=== PATIENT | male | born 1955 | race Caucasian/White ===

== ENCOUNTER → 2018-03-12 16:30 | Outpatient (CLI) | payer BC, SELFPAY ==
[2018-03-12 16:35] LABS: Basophils # 0.1 K/mm3 (0-0.2); Basophils % 0.6 % (0.1-2.0); Eosinophils # 0.3 K/mm3 (0.0-0.4); Eosinophils % 2.9 % (0.1-12.0); Hematocrit 42.8 % (42.0-52.0); Hemoglobin 14.1 g/dL (14.1-18.0); Lymphocytes # 2.2 K/mm3 (0.7-4.5); Lymphocytes % 26.1 K/mm3 (10-50); Mean Corpuscular Hemoglobin 28.5 pg (27.0-31.2); Mean Corpuscular Volume 86.4 fl (80-94); Mean Platelet Volume 7.5 fl (7.4-10.4); Monocytes # 0.6 K/mm3 (0.1-1.0); Monocytes % 7.4 % (1.7-9.3); Neutrophils # 5.4 K/mm3 (1.8-7.8); Neutrophils % 62.9 % (37.0-80.0); Platelet Count 203 K/mm3 (142-424); Red Blood Count 4.95 M/mm3 (4.60-6.20); Red Cell Distribution Width 13.9 % (11.5-17.5); White Blood Count 8.5 K/mm3 (4.8-10.8)
--- NOTE | 2018-03-12 16:52 | CT_ITS ---
CT head/brain wo con HISTORY: ITS.REASON: HEADACHES, WEAKNESS, ATAXIA,BLURRED VISION ORDERING PHYSICIAN: Home Sawant PATIENT AGE: 62 years COMPARISON: None TECHNIQUE: Axial images obtained without contrast. Brain and bone windows reviewed. All CT scans at the facility use one or more dose reduction, viz: automated exposure control; ma/kV adjustment per patient size (including targeted exams where dose is matched to indication; i.e. head); or iterative reconstruction technique. FINDINGS: No midline shift, mass effect, intracranial hemorrhage, hydrocephalus, or extra-axial fluid collection is evident. There is a small area of decreased attenuation in the left subinsular region measuring 6 mm and may be due to small chronic lacunar infarction. Mild periventricular ischemic gliotic changes are noted. The calvarium has an unremarkable appearance. No mastoid effusion. No sinus air-fluid levels.. IMPRESSION: 1. No acute intracranial findings. 2. Suspect old small lacunar infarction of the left subinsular region with mild periventricular ischemic gliotic change
[2018-03-12 17:12] LABS: Anion Gap 12.3 mEq/L (5-15); Blood Urea Nitrogen 31 mg/dL (7-18); Calcium 9.4 mg/dL (8.5-10.1); Carbon Dioxide 28 mmol/L (21.0-32.0); Chloride 98 mmol/L (98-107); Creatinine,Serum 1.83 mg/dL (0.70-1.30); Estimated Glomerular Filt Rate 38 ml/min (>60); GFR (African American) 45 ML/MIN (>60); Glucose 146 mg/dL (74-106); Potassium 4.3 mmoL/L (3.5-5.1); Sodium 134 mmol/L (136-145)
== END ==
PROVIDERS: PCP Internal Medicine; Visit Provider Internal Medicine
DX: R27.0 Ataxia, unspecified (principal); R51 Headache; R53.1 Weakness; H53.8 Other visual disturbances; R42 Dizziness and giddiness
CPT/HCPCS: 70450; 80048; 85025

== ENCOUNTER → 2018-04-24 13:33 | Outpatient (CLI) | payer BC, SELFPAY ==
--- NOTE | 2018-04-24 13:37 | US_ITS ---
US kidney retroperitoneal comp HISTORY: ITS.REASON: ELEVATED KID FUNCTIONS ORDERING PHYSICIAN: Home Sawant PATIENT AGE: 62 years Comparison: FINDINGS: Comparison made previous CT scan abdomen pelvis from 11/30/2015 RIGHT KIDNEY:Unremarkable. Normal size and echogenicity. The right kidney measures 11.8 x 6.2 x 5.9 cm and shows a good cortical medullary junction with no hydronephrosis or other abnormality. LEFT KIDNEY:Unremarkable. No hydronephrosis. Normal size and echogenicity the left kidney measures 10.4 x 5.9 x 5.9 cm and shows a good cortical measure junction. There is normal vascularity to both kidneys.. OTHER FINDINGS the spleen appears normal. IMPRESSION: Both kidneys appear sonographically normal
== END ==
PROVIDERS: Family Provider Internal Medicine; PCP Internal Medicine; Visit Provider Internal Medicine
DX: R94.4 Abnormal results of kidney function studies (principal)
CPT/HCPCS: 76770

== ENCOUNTER → 2018-05-07 09:34 | Outpatient (POV) | payer BC, SELFPAY | PROVIDERS: Visit Provider Nurse Practitioner Acute Care | DX: Z00.00 Encounter for general adult medical examination without abnormal findings (principal) ==

== ENCOUNTER → 2018-11-07 10:25 | Outpatient (CLI) | payer BC, SELFPAY ==
--- NOTE | 2018-11-07 12:28 | CT_ITS ---
CT abdomen pelvis wo con CLINICAL INDICATION: Left lower quadrant pain, history of bowel obstruction ITS.REASON: LLQ PAIN ORDERING PHYSICIAN: Home Sawant PATIENT AGE: 63 years COMPARISON: 11/30/2015 TECHNIQUE: Axial images obtained with sagittal and coronal reformats. All CT scans at the facility use one or more dose reduction, viz: automated exposure control, ma/kV adjustment per patient size (including targeted exams where dose is matched to indication, i.e. head), or iterative reconstruction technique. PROCEDURE: Oral Contrast: Gastroview IV Contrast: None . FINDINGS: There is patchy groundglass density in the right lung base medially nonspecific but could be due to a small area of infiltrate. There is a 4 mm noncalcified nodule in this area which is slightly more prominent when compared to 11/30/2015. There are fibrotic changes in the left lung base with a 6 mm noncalcified nodular opacity in the left lower lobe. The liver, gallbladder, spleen, adrenal glands, and pancreas have an unremarkable unenhanced appearance. There is mild stranding of the perinephric renal fat bilaterally is nonspecific. There is a nonobstructing 4 mm stone in the mid polar region of the left kidney. 2.3 cm isodensity is noted in the lower pole the right kidney which may be due to a cyst. Unremarkable appendix. No intestinal obstruction or free air. There is diverticulosis of the descending and sigmoid colon but no evidence of diverticulitis. No acute pelvic findings. Postsurgical changes with prior posterior fusion at L4 and L5. IMPRESSION: 1. No acute abdominal or pelvic findings. No intestinal obstruction 2. Nonobstructing left renal calculus. 3. Patchy groundglass density in the right lower lobe which may be due to small area of infiltrate. 4. 4 mm right lower lobe nodule and 6 mm left lower lobe nodule. Consider 6-12 month follow-up chest CT
== END ==
PROVIDERS: PCP Internal Medicine; Visit Provider Internal Medicine
DX: R10.32 Left lower quadrant pain (principal)
CPT/HCPCS: 74176

== ENCOUNTER 2018-12-19 10:18 | Outpatient (CLI) | payer BC, SELFPAY ==
[2018-12-19 10:26] LABS: Hematocrit 36.6 % (42.0-52.0)
[2018-12-19 10:53] LABS: Anion Gap 14.1 mEq/L (5-15); Blood Urea Nitrogen 27 mg/dL (7-18); Calcium 9.4 mg/dL (8.5-10.1); Carbon Dioxide 27 mmol/L (21.0-32.0); Chloride 99 mmol/L (98-107); Estimated Glomerular Filt Rate 44 ml/min (>60); GFR (African American) 53 ML/MIN (>60); Glucose 195 mg/dL (74-106); Potassium 4.1 mmoL/L (3.5-5.1); Sodium 136 mmol/L (136-145)
[2018-12-19 11:40] VITALS: BP 81/58; PULSE 104; RESP 20; O2SAT 92
[2018-12-19 12:10] VITALS: BP 85/61; PULSE 94; RESP 18
[2018-12-19 12:40] VITALS: BP 100/59; PULSE 93; RESP 18
[2018-12-19 13:10] VITALS: BP 112/67; PULSE 90; RESP 16
[2018-12-19 13:50] VITALS: BP 111/72; PULSE 91; RESP 18
== END 2018-12-19 13:50 | disposition home or self-care (01) ==
LOC: LAB.DROPOF 10:18 → INF 11:25
PROVIDERS: PCP Internal Medicine; Visit Provider Internal Medicine
DX: E11.65 Type 2 diabetes mellitus with hyperglycemia (principal); E86.0 Dehydration; I10 Essential (primary) hypertension; R53.83 Other fatigue; R53.1 Weakness
CPT/HCPCS: 80048; 85014; 96360; 96361

== ENCOUNTER → 2020-03-21 10:45 | Outpatient (CLI) | payer MEDICARE, SELFPAY ==
--- NOTE | 2020-03-21 11:01 | XR_ITS ---
PROCEDURE: XR HIP RT 2-3V W/PELVIS CLINICAL INDICATION: RIGHT POSTERIOR HIP PAIN COMPARISON: No exams were available for comparison FINDINGS: There are mild osteoarthritic changes of the hips. No acute fracture or dislocation. No lytic or blastic change. Postsurgical changes are present in the lumbar spine. There is a small area of concavity along the right femoral neck superiorly at the femoral head and neck junction. 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
== END ==
PROVIDERS: PCP Internal Medicine; Referring Provider Internal Medicine; Visit Provider Internal Medicine
DX: M25.551 Pain in right hip (principal)
CPT/HCPCS: 73502

== ENCOUNTER → 2020-03-30 09:11 | Outpatient (CLI) | payer MEDICARE, BC, SELFPAY ==
--- NOTE | 2020-03-30 09:25 | MR_ITS ---
PROCEDURE: MR LUMBAR SPINE WO/W CON CLINICAL INDICATION: LUMBAGO, RT HIP PAIN COMPARISON: [facility] [place]/WO from 10/21/2014 TECHNIQUE: Standard multiplanar multiecho sequences are performed with 19 cc IV ProHance. 3-D MIP and myelographic images are also rendered and reviewed FINDINGS: The patient is again noted to be status post bilateral transpedicular screw and wandy external fixation, interdisc fusion, and laminectomy at L4-5. There is otherwise uniform fat marrow signal intensity and the disc spaces, spinal cord, and the conus medullaris are unremarkable. At the L1-2 disc space, there is a broad-based disc protrusion, subtle left paracentral focal paracentral disc protrusion and mild facet arthropathy producing mild central canal and mild bilateral neural foraminal stenosis. At the L2-3 disc space there is a stable right lateral disc protrusion as well as a broad-based bulging disc producing stable mild right neural foraminal stenosis. There is also a stable mild left neural foraminal stenosis. At the L3-4 disc space there is a broad-based disc protrusion, hypertrophied ligamentum flavum, and mild facet arthropathy producing mild central canal and mild bilateral neural foraminal stenosis. At the L4-5 disc space there is bilateral external fixation, inter disc fusion, and a laminectomy defect noted as well as facet arthropathy producing mild bilateral neural foraminal stenosis, left greater than right. There is enhancing scar within the laminectomy site. At the L5-S1 disc space there is a stable broad-based disc protrusion with a superimposed focal paracentral disc protrusion which is slightly more pronounced than the last examination.. There is mild facet arthropathy. Mild central canal and mild bilateral neural foraminal stenosis, left greater than right is noted. The paralumbar structures are remarkable for a 2 centimeter right lower pole renal cyst. IMPRESSION: Status post L4-5 external fixation, laminectomy, and inter disc fusion. Mild multilevel spinal stenosis as above. Dictated by: Ronald Brand 03/30/2020 16:35 Electronically signed by Ronald Brand in [place] 03/30/2020 16:35
--- NOTE | 2020-03-30 09:25 | MR_ITS ---
PROCEDURE: MR HIP RT WO/W CON CLINICAL INDICATION: LUMBAGO, RT HIP PAIN Right hip pain, possible acetabular impingement, right leg pain numbness and tingling COMPARISON: 03/21/2020 TECHNIQUE: Routine multiplanar multi echo sequences are performed without and with gadolinium enhancement. FINDINGS: There is no evidence of avascular necrosis. There are mild osteoarthritic changes of the hips with some decrease in the hip joint space. There appears to be a small paralabral cyst of the right labrum superiorly and laterally. There is some irregular increased signal intensity of the anterior labrum on the right suspicious for labral tear. This is difficult to evaluate without intra-articular contrast or a significant joint effusion. 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 There does appear to be a small bump along the right femoral waist with a small subchondral cyst at this area which may be seen with femoral acetabular impingement. There may also be a small bump along the left femoral waist with tiny subchondral cyst. No fracture or dislocation. On the left there are subchondral cystic changes of the acetabulum and a small paralabral cyst suspected laterally and posteriorly. Sagittal images were not performed of the left hip. The SI joints have an unremarkable appearance. No fracture or dislocation. No other significant anomalies. IMPRESSION: There are mild osteoarthritic changes of the hips with bilateral subchondral cystic changes and small bilateral paralabral cysts. There are small bumps with small subchondral cystic changes along the anterior aspect of both femoral waist which may be seen with cam type [place]BER. There is heterogeneous increased signal intensity of the anterior aspect of the right glenoid labrum suggesting a labral tear or prominent degeneration. Dictated by: Aneesh Montero MD 04/05/2020 10:57 Electronically signed by Aneesh Montero MD in [place] 04/05/2020 10:57
[2020-03-30 10:14] LABS: Blood Urea Nitrogen 29 mg/dl (9-20); Estimated Glomerular Filt Rate 61 ml/min (>60); GFR (African American) 74 ML/MIN (>60)
== END ==
PROVIDERS: PCP Internal Medicine; Visit Provider Internal Medicine
DX: M54.41 Lumbago with sciatica, right side (principal); M25.551 Pain in right hip
CPT/HCPCS: 36415; 72158; 73723; 76376; 82565; 84520; A9576

== ENCOUNTER 2020-05-30 18:31 | Emergency (ER) | payer MEDICARE, BC, SELFPAY ==
[2020-05-30] VITALS (7 sets, daily range): BP systolic 118–151; BP diastolic 71–87; PULSE 60–85; RESP 16–18; TEMP 36.7; O2SAT 96–100; BMI 27.1
--- NOTE | 2020-05-30 20:14 | HMH.EDGENADL ---
ED Disposition Clinical Impression: Laceration of forearm, complicated Qualifiers: Encounter type: initial encounter Laterality: right Qualified Code(s): S51.811A - Laceration without foreign body of right forearm, initial encounter Disposition: Home, Self-Care Condition on Discharge: Good Instructions: DI for Laceration Repair, DI for Wound Infection Additional Instructions: You have been evaluated for extensive lacerations to the right forearm. Please keep area clean and dry. You may shower after 24 hours. Follow-up for wound check in the next few days. Follow-up for suture removal in 7 to 10 days. Tylenol and ibuprofen for pain. Take Keflex as prescribed. Return to the emergency department if you have any new or worsening symptoms. Prescriptions: cephALEXin [cephALEXin 500mg capsule*] 500 mg PO Q6H 5 Days #20 cap Transmission Status: Received by [facility] Referrals: Home Sawant [Primary Care Provider] - Time of Disposition: 20:25 - Critical Care Critical Care Time: No Attestation: On 05/30/20, the high probability of a clinically significant, sudden or life threatening deterioration of the following system(s) required my full and direct attention, intervention and personal management. The time I documented below is in addition to time spent performing reported procedures but includes the following listed in this critical care notation. Medical Decision Making - Medical Records Medical records reviewed: Yes: I reviewed the patient's medical records. - Jan Inquiry Pt receiving controlled substance: No Vital Signs: 05/30/20 18:37 05/30/20 18:44 05/30/20 18:49 Temperature 98.1 F Temperature Source Oral Pulse Rate Pulse Rate [Right] 63 61 60 Respiratory Rate 16 18 Blood Pressure Blood Pressure [Right Arm] 118/71 118/71 125/79 Blood Pressure Mean [Right Arm] 86 86 94 Blood Pressure Source Blood Pressure Source [Right Arm] Automatic Cuff Automatic Cuff Blood Pressure Position Blood Pressure Position [Right Arm] Sitting Supine 02 Sat by Pulse Oximetry 100 98 99 Oxygen Delivery Method Room Air 05/30/20 19:00 05/30/20 19:30 05/30/20 20:00 Temperature Temperature Source Pulse Rate Pulse Rate [Right] 60 68 76 Respiratory Rate 18 18 17 Blood Pressure Blood Pressure [Right Arm] 130/76 140/87 151/87 H Blood Pressure Mean [Right Arm] 94 104 108 Blood Pressure Source Blood Pressure Source [Right Arm] Automatic Cuff Automatic Cuff Automatic Cuff Blood Pressure Position Blood Pressure Position [Right Arm] Supine Supine Supine 02 Sat by Pulse Oximetry 99 99 98 Oxygen Delivery Method Room Air Room Air Room Air 05/30/20 20:24 Temperature 98.1 F Temperature Source Oral Pulse Rate 85 Pulse Rate [Right] Respiratory Rate 18 Blood Pressure 135/76 Blood Pressure [Right Arm] Blood Pressure Mean [Right Arm] Blood Pressure Source Automatic Cuff Blood Pressure Source [Right Arm] Blood Pressure Position Sitting Blood Pressure Position [Right Arm] 02 Sat by Pulse Oximetry Oxygen Delivery Method Room Air Orders (Tests/Meds): ED MEDICATIONS Generic Name Dose Route Start Last Admin Trade Name Freq PRN Reason Stop Dose Admin Sodium Chloride 1,000 mls @ 999 mls/hr 05/30/20 18:45 05/30/20 18:42 Sod Chlor 0.9% 1000ml Bag IV 05/30/20 19:45 999 mls/hr .Q1H1M THERESA Administration Discontinued Medications Generic Name Dose Route Start Last Admin Trade Name Freq PRN Reason Stop Dose Admin Cephalexin HCl 500 mg 05/30/20 20:24 05/30/20 20:32 Cephalexin 500mg Capsule PO 05/30/20 20:25 500 mg ONCE ONE Administration Protocol Morphine Sulfate 4 mg 05/30/20 18:32 05/30/20 18:43 Morphine 2mg/Ml Syringe IV 05/30/20 18:33 4 mg ONCE ONE Administration Ondansetron HCl 4 mg 05/30/20 18:33 05/30/20 18:41 Zofran 4mg/2ml Vial IV 05/30/20 18:34 4 mg ONCE ONE Administration Tetanus/Reduced Diphtheria/Acell Pertussi
== END 2020-05-30 20:37 | disposition home or self-care (01) ==
PROVIDERS: Emergency Provider Emergency Medicine; PCP Internal Medicine
DX: S51.811A Laceration without foreign body of right forearm, initial encounter (principal); W26.8XXA Contact with other sharp object(s), not elsewhere classified, initial encounter; Y92.89 Other specified places as the place of occurrence of the external cause; Z23 Encounter for immunization; I10 Essential (primary) hypertension; E78.5 Hyperlipidemia, unspecified
CPT/HCPCS: 13121; 13122; 90715; 96365; 96372; 96375; 99283; J2405

== ENCOUNTER → 2021-02-09 11:36 | Outpatient (CLI) | payer MEDICARE, BC, SELFPAY ==
--- NOTE | 2021-02-09 | XR_ITS ---
PROCEDURE: XR KNEE RT 3V CLINICAL INDICATION: FALL, RIGHT KNEE PAIN COMPARISON: [facility] [id number] KNEE-3 VIEWS-RT from 06/03/2017 FINDINGS: No fracture or dislocation. No lytic or blastic change. There is normal mineralization. Status post total knee replacement with good alignment and no evidence of orthopedic complication. Interosseous calcification noted to proximal tib fib region. Two lucencies are present in the proximal shaft of the tibia on the lateral view and may be due to prior surgical procedure. Other findings:None. IMPRESSION: Prior total knee replacement, no acute finding Dictated by: Aneesh Montero MD 02/09/2021 12:31 Aneesh Montero MD in [place] 02/09/2021 12:31
--- NOTE | 2021-02-09 | XR_ITS ---
PROCEDURE: XR HIP RT 2-3V W/PELVIS CLINICAL INDICATION: RT SACROILIAC PAIN, RT HIP/LEG PAIN COMPARISON: CR XR HIP RT 2-3V W/PELVIS from 03/21/2020 FINDINGS: There are mild osteoarthritic changes of both hips. Osteophytes with sclerosis noted along the inferior margin of the acetabulum on both sides with small subchondral cystic changes of the lip of the acetabulum superiorly and laterally on both sides. No fracture or dislocation. No lytic or blastic change. CAM deformity noted involving the right femoral head on the abduction ule view which may be seen with femoral acetabular impingement. There is some mild hypertrophic change of the lateral aspect of the acetabular roof on both sides. The concavity along the femoral head/neck junction is slightly more prominent compared to 03/21/2020. small cystic area is present in the right femoral neck laterally at 10 mm nonspecific not significantly changed IMPRESSION: Osteoarthritic changes of the hips with slightly more prominent CAM deformity of the right femoral head/neck junction which may be seen with femoral acetabular impingement Dictated by: Aneesh Montero MD 02/09/2021 12:28 Aneesh Montero MD in [place] 02/09/2021 12:28
== END ==
PROVIDERS: PCP Internal Medicine; Visit Provider Internal Medicine
DX: M53.3 Sacrococcygeal disorders, not elsewhere classified (principal); M25.551 Pain in right hip; M79.604 Pain in right leg; M25.561 Pain in right knee; W19.XXXA Unspecified fall, initial encounter
CPT/HCPCS: 73502; 73562

== ENCOUNTER → 2021-02-15 09:59 | Outpatient (POV) | payer MEDICARE, BC, SELFPAY ==
[2021-02-15 10:02] VITALS: BP 120/82; PULSE 89; RESP 18; O2SAT 98; BMI 23.3
--- NOTE | 2021-02-15 10:34 | HMH.PMCON ---
Assessment and Plan (1) Sacroiliitis Status: Chronic Category: Medical Code(s): M46.1 - Sacroiliitis, not elsewhere classified - Assessment and plan all Dx Assessment and Plan for all problems:: We will schedule right SI joint injection for the patient. I will follow-up with him afterwards reassess his symptoms at that time. He has been instructed to call the office if he has any issues prior to his next appointment. HPI - Data of Consult Consult date: 02/15/21 Requesting Physician: Italia Andrade APRN Primary Care Provider: Home Sawant - Consult Narrative Reason for consult: Right SI joint pain History of present illness: Mr. Doe is a 65 year old male who presents today for consultation in regards to his right SI joint pain. Patient has had this pain for several years. It comes and goes. Patient has a positive Hoang test SI joint compression test distraction test and Sherie's test on the right side. He is very tender. Patient utilizes cane for ambulation. He rates his pain today a 3 out of 10 which is down from a 9 out of 10 that it was last week. He is interested in injective therapy. Patient states that rest decreases his pain. He was given some temporary pain medication from his primary care physician to help with the pain. Has had a lumbar fusion in the past with Dr. Kaba he has been seen by pain management and got facet joint injections. Patient did not have a good experience when seeing pain management in [place]. CC: Italia Andrade APRN [facility] History I have reviewed the patient's past medical history: Yes Medical History: Reports:: Diabetes Mellitus Type 2, Hyperlipidemia, Hypertension Denies:: Cancer, Diabetes Mellitus Type 1, Internal Pacemaker, Lung Disease, MRSA, Seizures *Have you ever received a pneumonia vaccine?: Yes *Have you received a flu vaccine this season?: Yes Other Medical History: Reports: Arthritis Laterality Cases: Right: Total Knee Replacement Other Surgeries: No: Pacemaker Fractures: No - *Social History Smoking Status: Never smoker Alcohol Intake: never *Occupational Status:: other Housing: house Household Members: other *Travel in the last 8 weeks: None Family Hx:: Unable to obtain Review of Systems - Review of Systems ROS General: no recent weight change, no fever, no sleep disturbances Respiratory: no cough, no shortness of air, no recurring pulmonary infections Cardiovascular/Peripheral Vascular: No chest pain, No palpitations, no edema, no shortness of breath. Gastrointestinal: no new onset incontinence, normal bowel movements reported Genitourinary: no new onset incontinence Musculoskeletal: SI joint pain, hip pain right side Psychiatric: normal mood/ affect Neurological: [denies new onset weakness in extremities], [denies new onset balance issues] Meds Home Medications Medication Instructions Recorded Confirmed Type Aspirin [Adult Aspirin Regimen] 81 mg PO DAILY 06/08/18 05/30/20 History Gabapentin [Gabapentin 300mg Cap] 300 mg PO BID 06/08/18 05/30/20 History Pravastatin Sodium [Pravachol 40mg 40 mg PO DAILY 06/08/18 05/30/20 History Tablet] Valsartan/Hydrochlorothiazide 160 mg PO DAILY 06/08/18 05/30/20 History [Valsartan-Hctz 320-12.5 mg Tab] allopurinoL [Allopurinol 300mg 300 mg PO DAILY 06/08/18 05/30/20 History tablet] cephALEXin [cephALEXin 500mg 500 mg PO Q6H 5 Days #20 cap 05/30/20 Rx capsule*] Allergies Allergy/AdvReac Type Severity Reaction Status Date / Time No Known Allergies Allergy Verified 05/30/20 18:41 Objective Vital signs: Pulse Resp BP Pulse Ox 89 18 120/82 98 02/15/21 10:02 02/15/21 10:02 02/15/21 10:02 02/15/21 10:02 Narrative: Physical Exam General: Alert and oriented x3, no acute distress, pleasant and cooperative, [on room air] Lungs: Resps E/U, Symmetrical chest expansion, Eyes: PERRL Musculoskeletal: Flexion and extension
== END ==
PROVIDERS: PCP Internal Medicine; Visit Provider Clinical Nurse Specialist Family Health
DX: M46.1 Sacroiliitis, not elsewhere classified (principal)
CPT/HCPCS: 99202; G0463

== ENCOUNTER 2021-02-19 11:07 | Day surgery (SDC) | payer MEDICARE, BC, SELFPAY ==
[2021-02-19 11:33] VITALS: BP 141/81; PULSE 70; RESP 18; TEMP 36.6; O2SAT 98; BMI 26.4
[2021-02-19 11:57] VITALS: BP 128/89; PULSE 68; RESP 18
[2021-02-19 12:01] VITALS: BP 132/85; PULSE 85; RESP 18; O2SAT 98
--- NOTE | 2021-02-19 12:08 | P.PCN_ITS ---
- Procedure Date: 02/19/21 Time: 12:08 Anesthesiologist:: Grayson Xiao MD Complications:: None Pre-procedure Diagnosis:: Sacroiliitis Post-procedure Diagnosis:: Same Indications for Procedure:: This patient is a pleasant 65-year-old white male who we are treating for right- sided hip pain. He is tender over the right SI joint. He does have a positive Sherie's test on the right side. Is positive Hoang test on the right side. Is positive SI joint compression test on the right side. We will plan on a right SI joint injection under fluoroscopy today to help with pain symptoms. Procedure Details:: Right SI joint injection under fluoroscopy Informed consent was obtained and the risks and benefits of the procedure was going to the patient. Patient was taken to the procedure room. Patient was placed prone on the procedure table. The right hip was prepped using ChloraPrep. The skin and subcutaneous tissues were anesthetized using lidocaine. I placed a 22-gauge spinal needle into the inferior aspect of the right SI joint. Needle placement was confirmed with dye. After this we injected 5 mL bupivacaine 0.25% and Depo-Medrol 40 mg into the right SI joint. The patient tolerated the procedure well with no complication. Plan and Disposition:: We will follow-up with him in 2 weeks. Will reevaluate symptoms at that time.
[2021-02-19 12:13] VITALS: BP 141/84; PULSE 66; RESP 18; O2SAT 98
== END 2021-02-19 12:14 | disposition home or self-care (01) ==
LOC: SC.PAINP 11:08
PROVIDERS: PCP Internal Medicine; Visit Provider Anesthesiology
DX: M46.1 Sacroiliitis, not elsewhere classified (principal); E11.9 Type 2 diabetes mellitus without complications; E78.5 Hyperlipidemia, unspecified; I10 Essential (primary) hypertension; N18.9 Chronic kidney disease, unspecified; F41.9 Anxiety disorder, unspecified
CPT/HCPCS: 27096; G0260

== ENCOUNTER → 2021-03-04 08:24 | Outpatient (POV) | payer MEDICARE, BC, SELFPAY ==
[2021-03-04 08:39] VITALS: BP 130/73; PULSE 100; RESP 18; O2SAT 98; BMI 27.0
--- NOTE | 2021-03-04 09:24 | HMH.PAINSOAP ---
[facility] Pain Management SOAP Note Subjective:: Patient is a 65-year-old white male who presents today for follow-up after a right SI joint injection right trochanteric bursa injection. He rates his pain a 4 out of 10 at this time. Patient says his pain is worsening with H day. He reports to have gotten approximately 1 day of relief with his right SI injection and his right trochanteric bursa injection. He is complaining of pain today primarily in his right hip. He says when the pain is at its worst, the pain radiates into his right buttock. He reports did not be having any pain any longer and his right low back area since the injection, however. Patient says that his knee pain may be a contributor to his right hip pain. Patient has had a knee replacement by Dr. Sawant 1 to 2 months ago. He says that he is unsure if his pain is coming from his knee radiating to his hip or vice versa. At this time, he says his right hip is very tender to touch as well. Patient says he is unable to sleep at night due to the pain. The pain does not radiate past the knee. He is also having difficulty standing and walking. Review of Systems General: No recent weight changes, no fever, no sleep disturbances Respiratory: No cough, no shortness of air, no recurring pulmonary infections Cardiovascular/peripheral vascular: No chest pain, no palpitations, no edema, no shortness of breath Gastrointestinal: No new onset incontinence, normal bowel movements reported Genitourinary: No new onset incontinence Musculoskeletal: Right hip pain radiating into right knee Psychiatric: Normal mood/affect Neurological: [Denies weakness in extremities], [denies balance issues] Objective:: Physical exam General: Alert and oriented x3, no acute distress, pleasant and cooperative, [on room air] Lungs: Respirations even and unlabored, symmetrical chest expansion Eyes: PERRL Musculoskeletal: Flexion and extension of right lower extremity somewhat guarded secondary to pain, deep tendon reflexes normal, strength in upper and lower extremities [5/5], [abnormal gait noted] Neurological: Speech clear, senior information security analyst equal, no gross sensory deficit Assessment:: Right hip pain, right knee pain Plan:: We will schedule the patient for a right intra-articular hip injection. He did get a day of relief for his right low back pain. He does say that the pain is now in the right hip and right knee. He has had a recent right knee replacement. We will schedule him for a right intra-articular hip injection. The right trochanteric bursa injection did not give him any relief. He says the pain is very tender to touch to the area. We will see him back in the clinic after his injection to reevaluate his symptoms. We will continue with home stretching. She is unable to take anti-inflammatories due to renal insufficiency. Risks and benefits of the procedure have been explained to the patient. Patient would like to proceed with the procedure. Dr. Xiao has reviewed this note and agrees with this plan of care. This note was dictated using voice recognition software and make contain errors or omissions. [facility] History I have reviewed the patient's past medical history: Yes Medical History: Reports:: Diabetes Mellitus Type 2, Hyperlipidemia, Hypertension Denies:: Cancer, Diabetes Mellitus Type 1, Internal Pacemaker, Lung Disease, MRSA, Seizures *Have you ever received a pneumonia vaccine?: Yes *Have you received a flu vaccine this season?: Yes Other Medical History: Reports: Arthritis. Denies: Blood Transfusion Reaction Other Surgeries: No: Pacemaker Amputation: No Fractures: No - *Social History Smoking Status: Never smoker Alcohol Intake: never *Occupational Status:: retired Housing: house Household Members: spouse *Travel in the last 8 weeks: None Family Hx:: Unable to obtain
== END ==
PROVIDERS: PCP Internal Medicine; Visit Provider Clinical Nurse Specialist Family Health
DX: M25.551 Pain in right hip (principal); M25.561 Pain in right knee
CPT/HCPCS: 99212; G0463

== ENCOUNTER 2021-03-05 09:58 | Day surgery (SDC) | payer MEDICARE, BC, SELFPAY ==
[2021-03-05 10:20] VITALS: BP 131/75; PULSE 95; RESP 18; TEMP 36.1; O2SAT 97; BMI 27.0
[2021-03-05 12:09] VITALS: BP 111/74; PULSE 79; RESP 18; O2SAT 98
[2021-03-05 12:11] VITALS: BP 111/74; PULSE 79; RESP 18; O2SAT 98
[2021-03-05 12:21] VITALS: BP 121/70; PULSE 77; RESP 20; O2SAT 98
--- NOTE | 2021-03-05 15:11 | HMH.PMPROC ---
- Procedure Date: 03/05/21 Time: 15:12 Anesthesiologist:: Charley Kelly MD Complications:: None Pre-procedure Diagnosis:: Right hip pain, right hip arthropathy Post-procedure Diagnosis:: Same Indications for Procedure:: Patient is a very pleasant 65-year-old white male who presents with right hip pain related to right hip arthropathy. He reports the pain radiates into his right buttock. He reports that his right hip is extremely tender to touch and he says that he is unable to sleep at night because of uncontrolled pain. Because of this right hip pain he is having difficulty standing and walking. He also has associated right knee pain, but denies any radiation of pain past his knee. He has undergone knee replacement by Dr. Sawant few months ago. Of note he has undergone a right SI joint injection and a right trochanteric bursa injection in the past. He continues to note right-sided trochanteric bursa pain today and is interested in another injection to this site. Procedure Details:: Right intra-articular hip injection Informed consent was obtained, the risks and benefits of the procedure were explained to the patient. The patient was taken back to the procedure room. The right hip was prepped using ChloraPrep. The skin and subcutaneous tissues were anesthetized using lidocaine. A 22-gauge spinal needle was inserted and advanced to the right hip joint. Needle placement was confirmed with dye. After this, we injected 10 mL of bupivacaine0.25% and Depo-Medrol 80 mg. The patient tolerated the procedure well with no complications. Plan and Disposition:: We will follow-up with him in 2 weeks. Will reevaluate symptoms at that time.
== END 2021-03-05 12:22 | disposition home or self-care (01) ==
LOC: SC.PAINP 10:01
PROVIDERS: PCP Internal Medicine; Visit Provider Anesthesiology Pain Medicine
DX: M16.11 Unilateral primary osteoarthritis, right hip (principal); E78.5 Hyperlipidemia, unspecified; I10 Essential (primary) hypertension; E11.9 Type 2 diabetes mellitus without complications; N18.9 Chronic kidney disease, unspecified
CPT/HCPCS: 20610; 77002; J1040; Q9966

== ENCOUNTER → 2021-03-29 10:37 | Outpatient (POV) | payer MEDICARE, BC, SELFPAY ==
[2021-03-29 10:55] VITALS: BP 131/80; PULSE 71; RESP 18; O2SAT 98; BMI 27.0
--- NOTE | 2021-03-29 12:15 | HMH.PAINSOAP ---
[facility] Pain Management SOAP Note Subjective:: Patient is a 65-year-old male who presents today for follow-up after a right intra-articular hip injection. Patient is having pain in his right hip following a right knee replacement. He says the pain radiates into his right buttock. His right hip is tender to touch. He is having difficulty with sleeping at night due to the pain. He is also having difficulty standing and walking and undergoing physical therapy due to his pain. He has had a knee replacement by Dr. Sawant a few months ago. He has had a right SI joint injection which did not give him any relief. This was performed on 02/19/2021. He most recently had a right intra-articular hip injection which gave him no relief. This was done on 03/05/2021. Patient says when he followed back up with his orthopedic surgeon?Dr. Hernandez, he says he was informed that it is likely trochanteric bursitis. Patient is also having severe tenderness to his right buttock. He says his pain is worse when he is sitting. He does have to reposition often. He rates his pain a 4 out of 10. Patient says he has been advised by Dr. Hernandez to attempt a trochanteric bursa injection. According to the last note, the patient informed Dr. Kelly that he had had a trochanteric bursa injection with little to no relief. He would like to try the injection at the recommendation of Dr. Hernandez, however. We also discussed a piriformis injection along with a trochanteric bursa injection. He is having tenderness to palpation to bilateral areas. His pain is a 4 out of 10. Review of Systems General: No recent weight changes, no fever, difficulty sleeping due to pain in right hip Respiratory: No cough, no shortness of air, no recurring pulmonary infections Cardiovascular/peripheral vascular: No chest pain, no palpitations, no edema, no shortness of breath Gastrointestinal: No new onset incontinence, normal bowel movements reported Genitourinary: No new onset incontinence Musculoskeletal: Pain to right hip and right buttock Psychiatric: Normal mood/affect Neurological: Weakness to right lower extremity Objective:: Physical exam General: Alert and oriented x3, no acute distress, pleasant and cooperative, [on room air] Lungs: Respirations even and unlabored, symmetrical chest expansion Eyes: PERRL Musculoskeletal: Flexion and extension of [] right lower extremity guarded secondary to pain, deep tendon reflexes normal, strength in upper and lower extremities [4/5], [abnormal gait noted] Neurological: Speech clear, gun number equal, no gross sensory deficit Assessment:: Right trochanteric bursitis, right hip pain, piriformis pain syndrome Plan:: We will schedule the patient for right trochanteric bursa injection. He has said that Dr. Hernandez has recommended we proceed with this type of injection. Patient I did discuss that according to previous note he has had this injection before. He would like to try the injection once again along with a piriformis injection. He is tender to palpation to both sites. We will see him back after his injections for reevaluation of symptoms. Patient has been advised if these injections do not give him any relief, we we will need to consider possible radicular pain from his lumbar spine. He has had lumbar fusion approximately [address] Bonilla. Risks and benefits of the procedure have been explained to the patient. Patient would like to proceed with the procedure. Possible side effects of corticosteroids have been discussed with the patient. Patient has been instructed to contact the clinic with any concerns before the next appointment. Dr. Xiao has reviewed this note and agrees with this plan of care. This note was dictated using voice recognition software and make contain errors or omissions. [facility] History I have reviewed the patient's past medical history: Yes Medical History: Reports:: Diabetes Mellitus Type 2, Hyperlipidemia, Hyper
== END ==
PROVIDERS: PCP Internal Medicine; Visit Provider Clinical Nurse Specialist Family Health
DX: M70.61 Trochanteric bursitis, right hip; G57.00 Lesion of sciatic nerve, unspecified lower limb
CPT/HCPCS: 99212; G0463

== ENCOUNTER 2021-04-09 10:41 | Day surgery (SDC) | payer MEDICARE, BC, SELFPAY ==
[2021-04-09 11:13] VITALS: BP 113/71; PULSE 76; RESP 18; TEMP 36.6; O2SAT 98; BMI 27.2
[2021-04-09 11:44] VITALS: BP 131/89; PULSE 90; RESP 18; O2SAT 97
[2021-04-09 11:45] VITALS: BP 130/96; PULSE 87; RESP 18; O2SAT 96
--- NOTE | 2021-04-09 11:54 | HMH.PMPROC ---
- Procedure Date: 04/09/21 Time: 11:54 Anesthesiologist:: Charley Kelly MD Complications:: None Pre-procedure Diagnosis:: Right-sided trochanteric bursitis, right-sided piriformis syndrome, chronic right-sided hip pain Post-procedure Diagnosis:: same Indications for Procedure:: Is a very pleasant 65-year-old male who presents today with chronic hip pain related to the above diagnosis. He reports the pain is worse on the side of his right leg as well as in his right buttock. He has tried and failed conservative treatment including oral pain medications as well as home stretching program. He had a knee replacement by Dr. Sawant a few months ago and also underwent right-sided SI joint injection with very minimal relief. He also underwent right-sided intra-articular hip injection with very minimal relief. His orthopedic surgeon, Dr. Hernandez, recommends that the patient may benefit from a trochanteric bursa injection. Today the plan is for the patient to undergo right-sided trochanteric bursa injection as well as a right-sided piriformis muscle injection #1. Procedure Details:: Informed consent was obtained and the risk and benefits of the procedure was explained to the patient. The patient was taken to the procedure room. The right hip was prepped using ChloraPrep. The skin and subcutaneous tissues were anesthetized using lidocaine. I placed a 22-gauge spinal needle and advanced under fluoroscopic guidance until it contacted the inferior aspect of the lateral border of the right SI joint. I then redirected the needle 1 cm inferiorly and 1 cm laterally to enter the piriformis muscle on the right. Once I entered the piriformis muscle on the right I injected contrast to confirm needle placement. After this, I injected bupivacaine 0.25% 5 mL and Depo-Medrol 40 mg into the right piriformis muscle. Next, The skin and subcutaneous tissues were anesthetized using lidocaine. I placed a 22-gauge spinal needle and advanced under fluoroscopic guidance until it contacted the right greater trochanter. Needle placement was confirmed with dye. After this I injected bupivacaine 0.25% 5 mL and Depo-Medrol 40 mg into the right trochanteric bursa. Patient tolerated the procedure well with no complications. Plan and Disposition:: We will follow-up with this patient in 2 weeks. Will reevaluate pain symptoms at that time.
[2021-04-09 12:10] VITALS: BP 112/72; PULSE 75; RESP 18; O2SAT 98
== END 2021-04-09 12:10 | disposition home or self-care (01) ==
LOC: SC.PAINP 10:43
PROVIDERS: PCP Internal Medicine; Visit Provider Anesthesiology Pain Medicine
DX: M70.61 Trochanteric bursitis, right hip (principal); G57.01 Lesion of sciatic nerve, right lower limb; M25.551 Pain in right hip; G89.29 Other chronic pain
CPT/HCPCS: 20610; 77002; J1030; Q9966

== ENCOUNTER → 2021-04-29 14:57 | Outpatient (POV) | payer MEDICARE, BC, SELFPAY ==
[2021-04-29 15:29] VITALS: BP 127/66; PULSE 83; RESP 18; O2SAT 96; BMI 26.6
--- NOTE | 2021-04-29 16:20 | P.CONS_ITS ---
[facility] Pain Management SOAP Note Subjective:: Patient is a 65-year-old white male who presents today for follow-up. He has been treated in the clinic for right-sided trochanteric bursitis, right-sided piriformis syndrome and chronic right-sided hip pain. Patient recently underwent right trochanteric bursa and right piriformis injection. He got up to 80% relief with injection, however, his pain is starting to return. Patient says he got approximately 2 to 3 weeks of relief with the injection. His pain is a 4 out of 10 today. He has had SI injections in the past with minimal relief. Patient says this is the most significant relief he has ever gotten with an injection. He says approximately 1 week ago his pain began to return. He would like to undergo a repeat injection to bilateral areas. Review of Systems General: No recent weight changes, no fever, no sleep disturbances Respiratory: No cough, no shortness of air, no recurring pulmonary infections Cardiovascular/peripheral vascular: No chest pain, no palpitations, no edema, no shortness of breath Gastrointestinal: No new onset incontinence, normal bowel movements reported Genitourinary: No new onset incontinence Musculoskeletal: Right buttock pain, right hip pain Psychiatric: Normal mood/affect Neurological: [Denies weakness in extremities], [denies balance issues] Objective:: Physical exam General: Alert and oriented x3, no acute distress, pleasant and cooperative, [on room air] Lungs: Respirations even and unlabored, symmetrical chest expansion Eyes: PERRL Musculoskeletal: Flexion and extension of [] lumbar spine somewhat guarded secondary to pain, deep tendon reflexes normal, strength in upper and lower extremities [5/5], [abnormal gait noted] Neurological: Speech clear, disaster recovery analyst equal, no gross sensory deficit Assessment:: Trochanteric bursitis right piriformis syndrome, right-sided hip pain Plan:: We will schedule patient for repeat trochanteric bursa injection on the right side, right piriformis injection for piriformis syndrome. We will see him back after his injection to reevaluate his symptoms. Patient has been instructed to contact the clinic with any concerns before the next appointment. Dr. Xiao has reviewed this note and agrees with this plan of care. This note was dictated using voice recognition software and make contain errors or omissions. [facility] History I have reviewed the patient's past medical history: Yes Medical History: Reports:: Diabetes Mellitus Type 2, Hyperlipidemia, Hypertension Denies:: Cancer, Diabetes Mellitus Type 1, Internal Pacemaker, Lung Disease, MRSA, Seizures *Have you ever received a pneumonia vaccine?: Yes *Have you received a flu vaccine this season?: No Other Medical History: Reports: Arthritis. Denies: Blood Transfusion Reaction Other Surgeries: Yes: Hernia Repair. No: Pacemaker Amputation: No Fractures: No - *Social History Smoking Status: Never smoker Alcohol Intake: never *Occupational Status:: unemployed Housing: house Household Members: spouse *Travel in the last 8 weeks: None Family Hx:: Unable to obtain
== END ==
PROVIDERS: PCP Internal Medicine; Visit Provider Clinical Nurse Specialist Family Health
DX: M70.61 Trochanteric bursitis, right hip (principal); G57.01 Lesion of sciatic nerve, right lower limb
CPT/HCPCS: 99212; G0463

== ENCOUNTER 2021-05-14 13:02 | Day surgery (SDC) | payer MEDICARE, BC, SELFPAY ==
[2021-05-14 13:13] VITALS: BP 128/67; PULSE 80; RESP 20; TEMP 36.6; O2SAT 97; BMI 26.4
[2021-05-14 14:07] VITALS: BP 126/74; PULSE 94; RESP 18; O2SAT 97
[2021-05-14 14:10] VITALS: BP 121/73; PULSE 94; RESP 18; O2SAT 99
[2021-05-14 14:25] VITALS: BP 126/62; PULSE 71; RESP 20; O2SAT 97
--- NOTE | 2021-05-14 14:28 | HMH.PMPROC ---
- Procedure Date: 05/14/21 Time: 14:28 Anesthesiologist:: Charley Kelly MD Complications:: None Pre-procedure Diagnosis:: Right piriformis syndrome, right trochanteric bursitis Post-procedure Diagnosis:: Same Indications for Procedure:: Patient is a very pleasant 65-year-old white male who presents today with chronic right hip and buttock pain related to the above diagnosis. He has tried and failed conservative treatment including oral pain medication and home stretching program for greater than 6 weeks. Of note, he recently underwent a right trochanteric bursa and a right piriformis injection and reports only 80% pain relief for about 2 to 3 weeks with this injection. He has trialed SI joint injections in the past with minimal relief. The plan for today is for the patient to undergo repeat right-sided piriformis muscle injection and right trochanteric bursa injection under fluoroscopy #2 Procedure Details:: Informed consent was obtained and the risk and benefits of the procedure was explained to the patient. The patient was taken to the procedure room. The right hip was prepped using ChloraPrep. The skin and subcutaneous tissues were anesthetized using lidocaine. I placed a 22-gauge spinal needle and advanced under fluoroscopic guidance until it contacted the right greater trochanter. Needle placement was confirmed with dye. After this I injected bupivacaine 0.25% 5 mL and Depo-Medrol 40 mg into the right trochanteric bursa. Patient tolerated the procedure well with no complications. Next, the skin and subcutaneous tissue overlying the lateral aspect of the right SI joint were anesthetized using 1% lidocaine. I placed a 22-gauge 3-1/2 inch spinal needle into the skin and advanced to the lateral aspect of the right SI joint. Once bone was contacted, I walked off inferiorly and laterally into the right piriformis muscle. Needle placement was confirmed with 1 mL of Isovue contrast dye. After this, I injected 0.25% of bupivacaine 5 mL and Depo-Medrol 40 mg into the right piriformis muscle. Patient tolerated the procedure well with no complications. Plan and Disposition:: Follow-up with this patient in 2 weeks. Will reevaluate pain symptoms at that time.
== END 2021-05-14 14:25 | disposition home or self-care (01) ==
LOC: SC.PAINP 13:04
PROVIDERS: PCP Internal Medicine; Visit Provider Anesthesiology Pain Medicine
DX: G57.01 Lesion of sciatic nerve, right lower limb; M70.61 Trochanteric bursitis, right hip; E78.5 Hyperlipidemia, unspecified; I10 Essential (primary) hypertension; M19.90 Unspecified osteoarthritis, unspecified site; E11.9 Type 2 diabetes mellitus without complications; N19 Unspecified kidney failure
CPT/HCPCS: 20610; 27096; 77002; G0260; J1030; Q9966

== ENCOUNTER → 2021-06-15 10:03 | Outpatient (CLI) | payer MEDICARE, BC, SELFPAY ==
[2021-06-15 11:13] LABS: Influenza A, PCR Not Detected (NotDetected); Influenza B, PCR Not Detected (NotDetected)
[2021-06-15 13:25] LABS: Coronavirus 19, PCR Detected (NotDetected)
== END ==
PROVIDERS: PCP Internal Medicine; Visit Provider Internal Medicine
DX: Z20.822 Contact with and (suspected) exposure to COVID-19 (principal); U07.1 COVID-19
CPT/HCPCS: U0003

== ENCOUNTER → 2021-07-20 10:53 | Outpatient (CLI) | payer MEDICARE, BC, SELFPAY ==
[2021-07-20 11:09] LABS: Basophils # 0.1 K/mm3 (0-0.2); Basophils % 0.9 % (0.1-2.0); Eosinophils # 0.3 K/mm3 (0.0-0.4); Eosinophils % 3.9 % (0.1-12.0); Hematocrit 45.9 % (42.0-52.0); Hemoglobin 14.9 g/dL (14.1-18.0); Lymphocytes # 2.3 K/mm3 (0.7-4.5); Lymphocytes % 33.3 % (10-50); Mean Corpuscular HGB Conc 32.6 g/dL (31.8-35.4); Mean Corpuscular Hemoglobin 29.4 pg (27.0-31.2); Mean Corpuscular Volume 90.4 fl (80-94); Mean Platelet Volume 8.2 fl (7.4-10.4); Monocytes # 0.5 K/mm3 (0.1-1.0); Monocytes % 6.9 % (1.7-9.3); Neutrophils # 3.8 K/mm3 (1.8-7.8); Neutrophils % 54.9 % (37.0-80.0); Platelet Count 241 K/mm3 (142-424); Red Blood Count 5.07 M/mm3 (4.60-6.20); Red Cell Distribution Width 15.2 % (11.5-17.5)
[2021-07-20 11:51] LABS: Cholesterol 161 mg/dl (140-200); HDL Cholesterol 40 mg/dl (40-60); Triglycerides 117 mg/dl (30-150); VLDL Cholesterol 23 mg/dL (0-40)
[2021-07-20 12:02] LABS: Direct LDL Cholesterol 86.62 mg/dL (100-129)
[2021-07-20 12:22] LABS: Prostate Specific Ag Screen 1.8 ng/ml (0.0-4.0)
[2021-07-21 11:23] LABS: Alanine Aminotransferase 12 U/L (12-78); Albumin Level 4.1 g/dl (3.5-5.0); Albumin/Globulin Ratio 1.6 (1.1-1.8); Alkaline Phosphatase 83 U/L (38-126); Anion Gap 11.9 mEq/L (5-15); Aspartate Amino Transferase 20 U/L (17-59); Bilirubin,Total 0.5 mg/dl (0.2-1.3); Blood Urea Nitrogen 17 mg/dl (9-20); Calcium 10.2 mg/dl (8.4-10.2); Carbon Dioxide 27 mmol/L (22.0-30.0); Chloride 108 mmol/L (98-107); Estimated Glomerular Filt Rate 67 ml/min (>60); GFR (African American) 81 ML/MIN (>60); Globulin 2.6 g/dL (1.3-3.2); Glucose 100 mg/dl (74-100); Potassium 4.9 mmoL/L (3.5-5.1); Sodium 142 mmol/L (136-145); Total Protein,Serum 6.7 g/dl (6.3-8.2)
== END ==
PROVIDERS: Visit Provider Internal Medicine
DX: E11.9 Type 2 diabetes mellitus without complications (principal); E78.5 Hyperlipidemia, unspecified; N18.9 Chronic kidney disease, unspecified; M47.27 Other spondylosis with radiculopathy, lumbosacral region; M17.11 Unilateral primary osteoarthritis, right knee; M10.9 Gout, unspecified; Z12.5 Encounter for screening for malignant neoplasm of prostate
CPT/HCPCS: 80053; 80061; 82043; 83036; 85025; G0103

== ENCOUNTER → 2022-03-14 12:03 | Outpatient (CLI) | payer MEDICARE, BC, SELFPAY ==
[2022-03-14 13:32] LABS: Basophils # 0.1 K/mm3 (0-0.2); Basophils % 0.9 % (0.1-2.0); Eosinophils # 0.3 K/mm3 (0.0-0.4); Eosinophils % 3.5 % (0.1-12.0); Hematocrit 47.5 % (42.0-52.0); Hemoglobin 15.6 g/dL (14.1-18.0); Mean Corpuscular HGB Conc 32.9 g/dL (31.8-35.4); Mean Corpuscular Hemoglobin 29.3 pg (27.0-31.2); Mean Platelet Volume 8.5 fl (7.4-10.4); Monocytes # 0.5 K/mm3 (0.1-1.0); Monocytes % 6.8 % (1.7-9.3); Neutrophils # 4.4 K/mm3 (1.8-7.8); Neutrophils % 60.7 % (37.0-80.0); Platelet Count 217 K/mm3 (142-424); Red Blood Count 5.34 M/mm3 (4.60-6.20); Red Cell Distribution Width 14.4 % (11.5-17.5); White Blood Count 7.3 K/mm3 (4.8-10.8)
[2022-03-14 13:59] LABS: Alanine Aminotransferase 19 U/L (12-78); Albumin/Globulin Ratio 1.7 (1.1-1.8); Alkaline Phosphatase 80 U/L (38-126); Anion Gap 10.5 mEq/L (5-15); Aspartate Amino Transferase 29 U/L (17-59); Blood Urea Nitrogen 29 mg/dl (9-20); Calcium 9.9 mg/dl (8.4-10.2); Carbon Dioxide 28 mmol/L (22.0-30.0); Chloride 106 mmol/L (98-107); Chol/HDL Ratio 3.4 (1-3.5); Cholesterol 138 mg/dl (140-200); Estimated Glomerular Filt Rate 55 ml/min (>60); GFR (African American) 67 ML/MIN (>60); Globulin 2.4 g/dL (1.3-3.2); Glucose 93 mg/dl (74-100); HDL Cholesterol 41 mg/dl (40-60); Potassium 4.5 mmoL/L (3.5-5.1); Sodium 140 mmol/L (136-145); Total Protein,Serum 6.4 g/dl (6.3-8.2); Triglycerides 83 mg/dl (30-150); Uric Acid 4.1 mg/dl (3.5-8.5); VLDL Cholesterol 17 mg/dL (0-40)
[2022-03-14 14:04] LABS: Bilirubin,Total < 0.1 mg/dl (0.2-1.3)
[2022-03-14 14:10] LABS: Direct LDL Cholesterol 67.46 mg/dL (100-129)
[2022-03-14 15:24] LABS: Hemoglobin A1C 5.5 % (4.0-6.0)
== END ==
PROVIDERS: PCP Internal Medicine; Visit Provider Internal Medicine
DX: I10 Essential (primary) hypertension (principal); E11.9 Type 2 diabetes mellitus without complications; E78.5 Hyperlipidemia, unspecified; D50.9 Iron deficiency anemia, unspecified; M10.9 Gout, unspecified
CPT/HCPCS: 80053; 80061; 83036; 84550; 85025

== ENCOUNTER → 2022-06-14 13:20 | Outpatient (CLI) | payer MEDICARE, BC, SELFPAY ==
[2022-06-14 16:59] LABS: Creatinine,Urine Random 77 mg/dL (Not Estab.)
[2022-06-14 17:03] LABS: Microalbumin/Creatinine Ratio 13.2
== END ==
PROVIDERS: PCP Internal Medicine; Visit Provider Internal Medicine
DX: E11.9 Type 2 diabetes mellitus without complications (principal); I10 Essential (primary) hypertension
CPT/HCPCS: 82043; 82570

== ENCOUNTER → 2022-09-13 13:29 | Outpatient (CLI) | payer MEDICARE, BC, SELFPAY ==
[2022-09-13 14:56] LABS: Hemoglobin A1C 5.6 % (4.0-6.0)
[2022-09-13 15:34] LABS: Alanine Aminotransferase 17 U/L (12-78); Albumin Level 4.5 g/dl (3.5-5.0); Albumin/Globulin Ratio 1.9 (1.1-1.8); Alkaline Phosphatase 92 U/L (38-126); Anion Gap 9.8 mEq/L (5-15); Aspartate Amino Transferase 25 U/L (17-59); Bilirubin,Total 0.6 mg/dl (0.2-1.3); Blood Urea Nitrogen 32 mg/dl (9-20); Calcium 10.3 mg/dl (8.4-10.2); Carbon Dioxide 27 mmol/L (22.0-30.0); Chloride 102 mmol/L (98-107); Chol/HDL Ratio 4.5 (1-3.5); Cholesterol 158 mg/dl (140-200); Estimated Glomerular Filt Rate 43 ml/min (>60); GFR (African American) 52 ML/MIN (>60); Globulin 2.4 g/dL (1.3-3.2); Glucose 92 mg/dl (74-100); HDL Cholesterol 35 mg/dl (40-60); Potassium 4.8 mmoL/L (3.5-5.1); Sodium 134 mmol/L (136-145); Total Protein,Serum 6.9 g/dl (6.3-8.2); Triglycerides 138 mg/dl (30-150); Uric Acid 4.5 mg/dl (3.5-8.5); VLDL Cholesterol 28 mg/dL (0-40)
[2022-09-13 15:45] LABS: Direct LDL Cholesterol 88.61 mg/dL (100-129)
[2022-09-13 16:02] LABS: Prostate Specific Ag Screen 2.1 ng/ml (0.0-4.0)
== END ==
PROVIDERS: PCP Internal Medicine; Visit Provider Internal Medicine
DX: E11.9 Type 2 diabetes mellitus without complications (principal); I10 Essential (primary) hypertension; E78.5 Hyperlipidemia, unspecified; M10.9 Gout, unspecified; Z12.5 Encounter for screening for malignant neoplasm of prostate
CPT/HCPCS: 80053; 80061; 83036; 84550; G0103

== ENCOUNTER 2023-02-11 16:18 | Emergency (ER) | payer OTHER, SELFPAY ==
[2023-02-11 16:26] VITALS: BP 117/61; PULSE 95; O2SAT 96
[2023-02-11 16:27] VITALS: BP 117/61; PULSE 97; RESP 16; TEMP 36.7; O2SAT 97; BMI 28.5
--- NOTE | 2023-02-11 16:30 | XR_ITS ---
PROCEDURE INFORMATION: Exam: XR Left Knee Exam date and time: 02/11/2023 4:53 PM Age: 67 years old Clinical indication: Pain; Knee; Left; Additional info: Knee injury TECHNIQUE: Imaging protocol: Radiologic exam of the left knee. Views: 3 views. COMPARISON: CR XR FEMUR LT 2V 02/11/2023 4:51 PM FINDINGS: Bones/joints: Acute fracture is present in the head of the fibula and is in anatomic alignment. No other fractures, dislocations, or focal bone lesions. No joint effusion. Joint spaces are well preserved. Soft tissues: No soft tissue gas, radiopaque foreign bodies, or masses. IMPRESSION: 1. Acute, nondisplaced fracture in the head of the left fibula. 2. No other radiographic abnormalities in the left knee.
--- NOTE | 2023-02-11 16:30 | XR_ITS ---
PROCEDURE INFORMATION: Exam: XR Left Tibia and Fibula Exam date and time: 02/11/2023 4:50 PM Age: 67 years old Clinical indication: Pain; Lower leg; Left; Additional info: Knee injury TECHNIQUE: Imaging protocol: Radiologic exam of the left tibia and fibula. Views: 2 views. COMPARISON: No relevant prior studies available. FINDINGS: Bones/joints: A nondisplaced fracture is present in the head of the left fibula. No other fractures are identified in the fibula or tibia. Minimal bone hypertrophy affects the medial and lateral malleoli. Plantar and Achilles heel spurs are present. Soft tissues: No soft tissue gas, radiopaque foreign bodies, or masses. IMPRESSION: 1. Acute nondisplaced fracture of the head of the left fibula. 2. No other fractures or dislocations in the left fibula and tibia. 3. 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 4. Plantar and Achilles heel spurs affect the left calcaneus.
--- NOTE | 2023-02-11 16:30 | XR_ITS ---
PROCEDURE INFORMATION: Exam: XR Left Femur Exam date and time: 02/11/2023 4:51 PM Age: 67 years old Clinical indication: Pain; Thigh; Left; Additional info: Knee injury TECHNIQUE: Imaging protocol: Radiologic exam of the left femur. Views: 2 views. COMPARISON: ABDPELWO CT abdomen pelvis wo con 11/07/2018 12:36 PM FINDINGS: Bones/joints: No fractures, dislocations, or bone lesions. Soft tissues: No soft tissue masses or radiopaque foreign bodies. IMPRESSION: No acute findings in the left femur.
--- NOTE | 2023-02-11 16:47 | HMH.EDGENADL ---
Discharge Plan Disposition Patient Disposition: Home, Self-Care Condition: Good Prescriptions Prescriptions: New hydrocodone-acetaminophen 5-325 mg tablet 1 tab PO Q8H PRN (Reason: pain) Qty: 12 0RF aspirin [Adult Low Dose Aspirin] 81 mg tablet,delayed release (DR/EC) 81 mg PO DAILY Qty: 10 0RF sennosides-docusate sodium [Senna with Docusate Sodium] 8.6-50 mg tablet 1 tab-cap PO DAILY PRN (Reason: constipation) Qty: 20 0RF No Action pravastatin 40 MG tablet 40 mg PO DAILY aspirin [Adult Aspirin Regimen] 81 MG tablet,delayed release (DR/EC) 81 mg PO DAILY gabapentin 300 MG capsule 300 mg PO BID Label Comments: TAKE 1 CAPSULE BY MOUTH EVERY MORNING AND 3 CAPSULES EVERY BEDTIME allopurinol 300 MG tablet 300 mg PO DAILY valsartan-hydrochlorothiazide 1 EACH tablet 160 mg PO DAILY Referrals Follow up/Referrals: Jaguar Valladares JR, MD [Physician] - See instructions Home Sawant MD [Primary Care Provider] - See instructions Activity Restrictions/Add. Instructions Additional Instructions/Restrictions: You were evaluated in the emergency department today. Please keep your splint on. Do not bear any weight on your left leg. Use crutches. chemical supervisor your prescriptions and take them as prescribed. Take narcotic pain medication only in the case of severe pain. Do not drive or operate heavy machinery while taking narcotic pain medication. I sent in a prescription for laxatives to avoid constipation while taking narcotic pain medication. Follow-up outpatient with orthopedics for further recommendations. You can call Dr. Valladares's clinic on Monday to schedule an appointment. Return to the emergency department for new or worsening symptoms. Clinical Impressions Clinical Impression: Effusion, left knee, Instability of left knee joint Closed fracture fibula, head Qualifiers: Encounter type: initial encounter Laterality: left Qualified Code(s): S82.832A - Other fracture of upper and lower end of left fibula, initial encounter for closed fracture Instructions Patient Instructions: How to Use Crutches, DI for Fracture, DI for Knee Effusion Discharge ED Provider: Michelle Dykes General Adult HPI General Chief complaint: Extremity Injury, Lower Stated complaint: [id number] left knee pain, home accident Time Seen by Provider: 02/11/23 16:28 Mode of Arrival: Wheelchair Source of Information: Patient Limitations: No Limitations Description of Symptoms (Recalled from ER Triage Doc. 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 Unable to bear weight d/t pain. Denies blood thinners. History of Present Illness HPI narrative: This patient is a 67-year-old male presenting to the emergency department for evaluation with concern for left knee injury. He reports that he was on his bobcat at home when he fell while trying to get off. His left foot got caught, and his left leg twisted at his knee. He states that after this, he tried to stand up on his left foot, and his knee twisted and gave out underneath him. He is not able to put weight on it at all. He states that his knee gives way and will go out to the side with minimal pressure. He complains of moderate left knee pain at this time. He also suffered an abrasion to his right elbow, which he states that he is not concerned about. He is unsure when his last tetanus shot was. He has no other injuries. He did not hit his head or lose consciousness. He is not on any blood thinners. Related Data Home Medications Medication Instructions Recorded Confirmed allopurinol 300 mg tablet 300 mg PO DAILY gout 06/08/18 05/14/21 aspirin 81 mg tablet,delayed 81 mg PO DAILY prevent 06/08/18 05/14/21 release (Adult Aspirin Regimen) gabapentin 300 mg capsule 300 mg PO BID Pain 06/08/18 05/14/21 pravastatin 40 mg tablet 40 mg PO DAILY Cholesterol 06/08/18 05/14/21 valsartan 320 160 mg PO DAILY b
--- NOTE | 2023-02-11 16:56 | PC.NURSE ---
PT TO XR
--- NOTE | 2023-02-11 17:14 | PC.NURSE ---
PT RETURNED FROM XR
[2023-02-11 17:27] VITALS: BP 140/80; PULSE 73; O2SAT 96
[2023-02-11 17:30] VITALS: BP 118/76; PULSE 72; O2SAT 95
[2023-02-11 18:00] VITALS: BP 130/75; PULSE 74; O2SAT 94
--- NOTE | 2023-02-11 18:00 | PC.NURSE ---
ROUNDED ON PT AT THIS TIME. NO NEEDS VOICED. CALL LIGHT WITHIN REACH
--- NOTE | 2023-02-11 18:19 | XR_ITS ---
PROCEDURE INFORMATION: Exam: XR Left Ankle Exam date and time: 02/11/2023 6:39 PM Age: 67 years old Clinical indication: Pain; Ankle; Left TECHNIQUE: Imaging protocol: Radiologic exam of the left ankle. Views: 3 or more views. COMPARISON: CR XR TIBIA FIBULA LT 2V 02/11/2023 4:50 PM FINDINGS: Bones/joints: No fractures or dislocations. Mild bone hypertrophy affects the medial and lateral malleoli. Mortise joint space is well preserved. Degenerative bone hypertrophy in the dorsal talonavicular joint and dorsum of the tarsal metatarsal joints. Plantar and Achilles heel spurs. Soft tissues: No soft tissue gas, radiopaque foreign bodies, or masses. IMPRESSION: 1. No fractures or dislocations in the left ankle. 2. Mild osteoarthritis in the mortise joint of the left ankle and in the left midfoot. 3. Plantar and Achilles heel spurs affect the left calcaneus.
--- NOTE | 2023-02-11 18:20 | PC.NURSE ---
DR ELLISON AT BEDSIDE TO UPDATE PT AND FAMILY
--- NOTE | 2023-02-11 18:25 | PC.NURSE ---
XR AT BEDSIDE
[2023-02-11 19:34] VITALS: BP 129/72; PULSE 70; RESP 18; TEMP 36.7; O2SAT 97
== END 2023-02-11 19:36 | disposition home or self-care (01) ==
PROVIDERS: Emergency Provider Emergency Medicine; PCP Internal Medicine
DX: S82.832A Other fracture of upper and lower end of left fibula, initial encounter for closed fracture (principal); M25.462 Effusion, left knee; V85.4XXA Person injured while boarding or alighting from special construction vehicle, initial encounter
CPT/HCPCS: 73552; 73562; 73590; 73610; 90471; 90715; 96372; 96374; 96375; 99285; J2405

== ENCOUNTER 2023-02-17 10:18 | Outpatient (RCR) | payer OTHER, MEDICARE, SELFPAY | END 2023-02-17 11:45 | disposition home or self-care (01) | LOC: PT 10:18 | PROVIDERS: Visit Provider Orthopaedic Surgery | DX: S82.832A Other fracture of upper and lower end of left fibula, initial encounter for closed fracture (principal) | CPT/HCPCS: 97760 ==

== ENCOUNTER → 2023-02-21 14:23 | Outpatient (CLI) | payer MEDICARE, SELFPAY ==
--- NOTE | 2023-02-21 14:23 | MR_ITS ---
FINAL REPORT CLINICAL HISTORY: Left Knee Fx pts leg lewis up in a bobcat while in use x 2 weeks ago FINDINGS: Multiplanar MR imaging of the right knee was performed without contrast. There is a tear of the posterior horn of the medial meniscus. The lateral meniscus is intact. There is a partial tear of the proximal anterior cruciate ligament. There is a partial tear of the proximal posterior cruciate ligament. There is a partial tear of the proximal medial collateral ligament. There is a complete tear of the proximal lateral collateral ligament. There is a small to partial tear of the insertion of the biceps tendon. The patellar and quadriceps tendons are intact. There is a small fracture of the medial aspect of the medial femoral condyle with adjacent bone marrow edema. There is a nondisplaced fracture of the lateral fibular head. No focal abnormality is identified of the articular cartilage. A moderate joint effusion is seen. The there is a moderate to severe biceps muscle injury with an intramuscular hematoma. IMPRESSION: Complete tear of the lateral collateral ligament with partial tears of the proximal ACL, proximal PCL, and proximal MCL. Small fracture with adjacent bone marrow edema in the medial aspect of the medial femoral condyle. Nondisplaced fracture of the lateral fibular head. Moderate to severe biceps muscle injury with an intramuscular hematoma and small partial tear at the insertion of the biceps tendon. Tear of the posterior horn of the medial meniscus. Reviewed, Interpreted and Dictated by Gary Rodriguez III, MD Transcribed by Kumar Dalton Authenticated and [facility]
== END ==
LOC: RAD 14:23
PROVIDERS: PCP Internal Medicine; Visit Provider Orthopaedic Surgery
DX: M25.562 Pain in left knee; M25.362 Other instability, left knee; S82.832A Other fracture of upper and lower end of left fibula, initial encounter for closed fracture
CPT/HCPCS: 73721

== ENCOUNTER → 2023-03-29 10:04 | Outpatient (CLI) | payer MEDICARE, SELFPAY ==
--- NOTE | 2023-03-29 10:08 | XR_ITS ---
FINAL REPORT CLINICAL HISTORY: HIP PAIN left hip pain more when patient turns foot to the midline FINDINGS: LEFT HIP SERIES Three views of the left hip were obtained. There is no acute fracture or dislocation. The joint spaces are preserved. There is no soft tissue abnormality. IMPRESSION: No acute abnormality. Reviewed, Interpreted and Dictated by Antoine Israel MD Transcribed by Kary White Authenticated and [facility]
== END ==
PROVIDERS: PCP Internal Medicine; Visit Provider Internal Medicine
DX: M25.552 Pain in left hip (principal)
CPT/HCPCS: 73502

== ENCOUNTER → 2023-03-29 12:48 | Outpatient (CLI) | payer MEDICARE, SELFPAY ==
[2023-03-29 13:32] LABS: Basophils % 0.7 % (0.1-2.0); Eosinophils # 0.2 K/mm3 (0.0-0.4); Eosinophils % 3.5 % (0.1-12.0); Hematocrit 44.9 % (42.0-52.0); Lymphocytes # 1.8 K/mm3 (0.7-4.5); Lymphocytes % 31.4 % (10-50); Mean Corpuscular HGB Conc 33.3 g/dL (31.8-35.4); Mean Corpuscular Hemoglobin 28.7 pg (27.0-31.2); Mean Corpuscular Volume 86.3 fl (80-94); Mean Platelet Volume 8.6 fl (7.4-10.4); Monocytes # 0.4 K/mm3 (0.1-1.0); Monocytes % 7.5 % (1.7-9.3); Neutrophils # 3.3 K/mm3 (1.8-7.8); Neutrophils % 56.9 % (37.0-80.0); Platelet Count 183 K/mm3 (142-424); Red Blood Count 5.21 M/mm3 (4.60-6.20); Red Cell Distribution Width 14.2 % (11.5-17.5); White Blood Count 5.8 K/mm3 (4.8-10.8)
[2023-03-29 13:56] LABS: Alanine Aminotransferase 18 U/L (12-78); Albumin Level 4.4 g/dl (3.5-5.0); Albumin/Globulin Ratio 1.8 (1.1-1.8); Alkaline Phosphatase 77 U/L (38-126); Anion Gap 15.8 mEq/L (5-15); Aspartate Amino Transferase 25 U/L (17-59); Bilirubin,Total 0.6 mg/dl (0.2-1.3); Blood Urea Nitrogen 18 mg/dl (9-20); Calcium 9.8 mg/dl (8.4-10.2); Carbon Dioxide 27 mmol/L (22.0-30.0); Chloride 104 mmol/L (98-107); Chol/HDL Ratio 3.1 (1-3.5); Cholesterol 140 mg/dl (140-200); Estimated Glomerular Filt Rate 60 ml/min (>60); GFR (African American) 73 ML/MIN (>60); Globulin 2.4 g/dL (1.3-3.2); Glucose 84 mg/dl (74-100); HDL Cholesterol 45 mg/dl (40-60); Potassium 4.8 mmoL/L (3.5-5.1); Sodium 142 mmol/L (136-145); Total Protein,Serum 6.8 g/dl (6.3-8.2); Triglycerides 123 mg/dl (30-150); Uric Acid 3.8 mg/dl (3.5-8.5); VLDL Cholesterol 25 mg/dL (0-40)
[2023-03-29 14:07] LABS: Direct LDL Cholesterol 69.33 mg/dL (100-129)
[2023-03-29 14:15] LABS: Hemoglobin A1C 5.2 % (4.0-6.0)
== END ==
PROVIDERS: PCP Internal Medicine; Visit Provider Internal Medicine
DX: E11.9 Type 2 diabetes mellitus without complications (principal)
CPT/HCPCS: 73502; 80053; 80061; 83036; 84550; 85025

== ENCOUNTER → 2023-07-03 18:32 | Outpatient (CLI) | payer MEDICARE, SELFPAY ==
[2023-07-03 19:39] LABS: Basophils % 0.6 % (0.1-2.0); Eosinophils # 0.2 K/mm3 (0.0-0.4); Eosinophils % 2.9 % (0.1-12.0); Hematocrit 44.3 % (42.0-52.0); Lymphocytes # 2.1 K/mm3 (0.7-4.5); Lymphocytes % 31.5 % (10-50); Mean Corpuscular HGB Conc 31.5 g/dL (31.8-35.4); Mean Corpuscular Hemoglobin 28.3 pg (27.0-31.2); Mean Corpuscular Volume 89.8 fl (80-94); Mean Platelet Volume 8.7 fl (7.4-10.4); Monocytes # 0.5 K/mm3 (0.1-1.0); Monocytes % 7.6 % (1.7-9.3); Neutrophils # 3.9 K/mm3 (1.8-7.8); Neutrophils % 57.4 % (37.0-80.0); Platelet Count 280 K/mm3 (142-424); Red Blood Count 4.94 M/mm3 (4.60-6.20); Red Cell Distribution Width 14.2 % (11.5-17.5); White Blood Count 6.8 K/mm3 (4.8-10.8)
[2023-07-03 19:56] LABS: Alanine Aminotransferase 19 U/L (12-78); Albumin Level 4.3 g/dl (3.5-5.0); Albumin/Globulin Ratio 1.5 (1.1-1.8); Alkaline Phosphatase 112 U/L (38-126); Anion Gap 16.9 mEq/L (5-15); Aspartate Amino Transferase 21 U/L (17-59); Bilirubin,Total 0.6 mg/dl (0.2-1.3); Blood Urea Nitrogen 20 mg/dl (9-20); Calcium 10.2 mg/dl (8.4-10.2); Carbon Dioxide 27 mmol/L (22.0-30.0); Chloride 103 mmol/L (98-107); Estimated Glomerular Filt Rate 50 ml/min (>60); GFR (African American) 61 ML/MIN (>60); Globulin 2.9 g/dL (1.3-3.2); Glucose 89 mg/dl (74-100); Potassium 4.9 mmoL/L (3.5-5.1); Sodium 142 mmol/L (136-145); Total Protein,Serum 7.2 g/dl (6.3-8.2)
[2023-07-03 20:00] LABS: Hemoglobin A1C 5.6 % (4.0-6.0)
[2023-07-03 20:27] LABS: Thyroid Stimulating Hormone 3.05 uIU/mL (0.465-4.68)
[2023-07-03 20:46] LABS: Vitamin B12 273 pg/mL (239-931)
== END ==
PROVIDERS: PCP Internal Medicine; Visit Provider Internal Medicine
DX: E11.9 Type 2 diabetes mellitus without complications (principal); E78.5 Hyperlipidemia, unspecified; N18.2 Chronic kidney disease, stage 2 (mild); R53.83 Other fatigue; I12.9 Hypertensive chronic kidney disease with stage 1 through stage 4 chronic kidney disease, or unspecified chronic kidney disease
CPT/HCPCS: 80053; 82607; 83036; 84443; 85025

== ENCOUNTER → 2023-09-29 13:57 | Outpatient (CLI) | payer MEDICARE, SELFPAY ==
[2023-09-29 18:48] LABS: Hemoglobin A1C 5.5 % (4.0-6.0)
== END ==
PROVIDERS: PCP Internal Medicine; Visit Provider Internal Medicine
DX: E11.9 Type 2 diabetes mellitus without complications (principal); N40.1 Benign prostatic hyperplasia with lower urinary tract symptoms; Z96.642 Presence of left artificial hip joint
CPT/HCPCS: 83036

== ENCOUNTER 2023-12-29 11:55 | Outpatient (CLI) | payer MEDICARE, SELFPAY ==
[2023-12-29 13:26] LABS: Hemoglobin A1C 5.6 % (4.0-6.0)
[2023-12-29 13:30] LABS: Albumin Level 4.5 g/dl (3.5-5.0); Alkaline Phosphatase 85 U/L (38-126); Anion Gap 11.6 mEq/L (5-15); Bilirubin,Total 0.7 mg/dl (0.2-1.3); Blood Urea Nitrogen 23 mg/dl (9-20); Carbon Dioxide 28 mmol/L (22.0-30.0); Chloride 106 mmol/L (98-107); Cholesterol 161 mg/dl (140-200); Estimated Glomerular Filt Rate 50 ml/min (>60); GFR (African American) 61 ML/MIN (>60); Globulin 2.3 g/dL (1.3-3.2); HDL Cholesterol 40 mg/dl (40-60); Potassium 4.6 mmoL/L (3.5-5.1); Sodium 141 mmol/L (136-145); Total Protein,Serum 6.8 g/dl (6.3-8.2); Triglycerides 81 mg/dl (30-150); Uric Acid 3.8 mg/dl (3.5-8.5); VLDL Cholesterol 16 mg/dL (0-40)
[2023-12-29 13:31] LABS: Alanine Aminotransferase 19 U/L (12-78); Aspartate Amino Transferase 26 U/L (17-59)
[2023-12-29 13:35] LABS: Glucose 101 mg/dl (74-100)
[2023-12-29 13:36] LABS: Calcium 10.5 mg/dl (8.4-10.2)
[2023-12-29 13:39] LABS: Creatinine,Urine Random 70 mg/dL (Not Estab.)
[2023-12-29 13:41] LABS: Direct LDL Cholesterol 84.92 mg/dL (100-129)
[2023-12-29 13:44] LABS: Microalbumin/Creatinine Ratio 47.1
[2023-12-29 13:59] LABS: Prostate Specific Ag Screen 2.2 ng/ml (0.0-4.0)
== END 2023-12-29 23:59 ==
LOC: LAB.DROPOF 11:56
PROVIDERS: PCP Internal Medicine; Visit Provider Internal Medicine
DX: E11.22 Type 2 diabetes mellitus with diabetic chronic kidney disease (principal); Z12.5 Encounter for screening for malignant neoplasm of prostate; I12.9 Hypertensive chronic kidney disease with stage 1 through stage 4 chronic kidney disease, or unspecified chronic kidney disease; E78.5 Hyperlipidemia, unspecified; M10.9 Gout, unspecified; N18.2 Chronic kidney disease, stage 2 (mild); N40.1 Benign prostatic hyperplasia with lower urinary tract symptoms
CPT/HCPCS: 80053; 80061; 82043; 82570; 83036; 84550; G0103

== ENCOUNTER 2024-06-05 17:13 | Outpatient (CLI) | payer MEDICARE, SELFPAY ==
[2024-06-05 17:20] LABS: Basophils # 0.1 K/mm3 (0-0.2); Basophils % 0.8 % (0.1-2.0); Eosinophils % 0.3 % (0.1-12.0); Hematocrit 45.1 % (42.0-52.0); Lymphocytes # 1.3 K/mm3 (0.7-4.5); Lymphocytes % 22.9 % (10-50); Mean Corpuscular HGB Conc 33.4 g/dL (31.8-35.4); Mean Corpuscular Hemoglobin 29.7 pg (27.0-31.2); Mean Corpuscular Volume 88.9 fl (80-94); Mean Platelet Volume 7.8 fl (7.4-10.4); Monocytes % 17.3 % (1.7-9.3); Neutrophils # 3.3 K/mm3 (1.8-7.8); Neutrophils % 58.7 % (37.0-80.0); Platelet Count 139 K/mm3 (142-424); Red Blood Count 5.07 M/mm3 (4.60-6.20); Red Cell Distribution Width 14.6 % (11.5-17.5); White Blood Count 5.7 K/mm3 (4.8-10.8)
[2024-06-05 19:31] LABS: Chloride 100 mmol/L (98-107); Potassium 4.7 mmoL/L (3.5-5.1); Sodium 131 mmol/L (136-145)
[2024-06-05 19:33] LABS: Alanine Aminotransferase 19 U/L (12-78); Anion Gap 9.7 mEq/L (5-15); Aspartate Amino Transferase 24 U/L (17-59); Blood Urea Nitrogen 18 mg/dl (9-20); Carbon Dioxide 26 mmol/L (22.0-30.0); Estimated Glomerular Filt Rate 55 ml/min (>60); GFR (African American) 66 ML/MIN (>60)
[2024-06-05 19:34] LABS: Albumin/Globulin Ratio 1.7 (1.1-1.8); Alkaline Phosphatase 73 U/L (38-126); Bilirubin,Total 0.7 mg/dl (0.2-1.3); Calcium 9.3 mg/dl (8.4-10.2); Globulin 2.4 g/dL (1.3-3.2); Glucose 96 mg/dl (74-100); Total Protein,Serum 6.4 g/dl (6.3-8.2)
[2024-06-05 22:06] LABS: Hemoglobin A1C 5.7 % (4.0-6.0)
== END 2024-06-05 23:59 | disposition home or self-care (01) ==
LOC: LAB.DROPOF 17:13
PROVIDERS: PCP Internal Medicine; Visit Provider Internal Medicine
DX: I10 Essential (primary) hypertension (principal); E11.9 Type 2 diabetes mellitus without complications; Z79.84 Long term (current) use of oral hypoglycemic drugs
CPT/HCPCS: 80053; 83036; 85025